=== PATIENT | female | born 1950 | race Caucasian/White ===

== ENCOUNTER 2021-11-06 13:51 | Outpatient (CLI) | payer MEDICARE, OTHER, SELFPAY ==
--- NOTE | 2021-11-06 14:04 | USCV_ITS ---
Conchita Wild Age: 71 Gender: F : 1950 Exam Date: 11/06/2021 14:30 Ordering Phys: Puja Schmid MD Technologist: LEANDRA Exam Location: [facility] – [place] Indication: EVAL FOR CAROTID STENOSIS Risk Factors: Previous Vascular Surgery: Right Brachial BP: / Left Brachial BP: / Right Left Velocity (cm/s) Spectral Plaque Velocity (cm/s) Spectral Plaque Syst/Diast Broadening Syst/Diast Broadening 75.40/ 11.10 Prox CCA 109.10/ 18.40 114.70/18.70 Mid CCA 122.30/ 21.00 Homo 69.10/ 14.80 Hetro Distal CCA 120.90/ 22.30 Homo 134.80/33.10 Hetro Prox ICA 100.60/ 21.20 Homo 86.00/ 17.60 Mid ICA 93.30 / 19.70 100.20/18.60 Distal ICA 93.90 / 19.00 174.10 Hetro ECA 120.90 1.18 ICA/CCA 0.82 Antegrade Vertebral Antegrade 50.60/ 10.50 cm/s 62.60/ 15.70 cm/s Tri Subclavian Tri 167.4 297.5 0 0 FINDINGS Comparison:. 08/08/15. No significant elevation of systolic or diastolic velocities. Waveforms are normal. Mixture of calcified and noncalcified plaque in the bifurcations. Antegrade vertebral arteries. CONCLUSIONS Bilateral ICA stenosis less than 50%. No interval change in stenosis since prior exam. Dr. Jessica Dodson DO (Electronically Signed) Final Date: 06 November 2021 15:48 S
== END 2021-11-06 13:52 | disposition home or self-care (01) ==
LOC: RAD 14:02
PROVIDERS: PCP Nurse Practitioner Family; Visit Provider Internal Medicine Interventional Cardiology
DX: I65.23 Occlusion and stenosis of bilateral carotid arteries (principal)
CPT/HCPCS: 93880

== ENCOUNTER 2022-12-29 06:34 | Outpatient (CLI) | payer MEDICARE, OTHER, SELFPAY | END 2022-12-29 06:35 | disposition home or self-care (01) | LOC: SLEEP 12-30 06:35 | PROVIDERS: PCP Nurse Practitioner Family; Visit Provider Internal Medicine Interventional Cardiology | DX: I25.10 Atherosclerotic heart disease of native coronary artery without angina pectoris (principal); E78.5 Hyperlipidemia, unspecified; I10 Essential (primary) hypertension; R06.83 Snoring; R53.83 Other fatigue | CPT/HCPCS: 95810 ==